=== PATIENT | male | born 1985 | race Caucasian/White ===

== ENCOUNTER 2018-11-13 08:41 | Emergency (ER) | payer SELFPAY ==
[2018-11-13] MEDS ORDERED: LIDOCAINE 1% INJ-PF (10 MG/ML) 30 ML SDV INJ ONE (10:16)
--- NOTE | 2018-11-13 11:03 | RADIOLOGY REPORT (SQ) ---
EXAM DESCRIPTION: HAND RIGHT 3 VIEWS COMPLETED DATE/TIME: 11/13/2018 10:52 am REASON FOR STUDY: PALM LACERATION EVAL FOR FB COMPARISON: None. EXAM PARAMETERS: NUMBER OF VIEWS: Three views. TECHNIQUE: AP, lateral and oblique radiographic images acquired of the right hand. LIMITATIONS: None. FINDINGS: MINERALIZATION: Normal. BONES: No acute fracture or dislocation. No worrisome bone lesions. JOINTS: No effusions. SOFT TISSUES: Laceration overlying 5th metacarpal. No foreign body. OTHER: No other significant finding. IMPRESSION: Soft tissue injury. TECHNICAL DOCUMENTATION: JOB ID: [id number] [employer] All Rights Reserved Reading location - IP/workstation name: [email or web address]
[2018-11-13] MEDS ORDERED: DIPH/PERTUSS(ACELL)/TETANUS VAC/PF 0.5 ML SYR (>=10YO) IM ONE (12:06)
--- NOTE | 2018-11-13 12:06 | ER Document Report ---
ED Wound - General Chief Complaint: Laceration Stated Complaint: ARM/HAND LACERATION Time Seen by Provider: 11/13/18 09:59 TRAVEL OUTSIDE OF THE [place] IN LAST 30 DAYS: No - Related Data Allergies/Adverse Reactions: amoxicillin Allergy (Verified 11/13/18 09:58) Past Medical History - Social History Smoking Status: Never Smoker Chew tobacco use (# tins/day): No Frequency of alcohol use: None Drug Abuse: None Patient has suicidal ideation: No Patient has homicidal ideation: No Renal/ Medical History: Denies: Hx Peritoneal Dialysis Physical Exam - Vital signs Vitals: Temp Pulse Resp BP Pulse Ox 98.4 F 104 H 20 152/77 H 96 11/13/18 09:07 11/13/18 09:07 11/13/18 09:07 11/13/18 09:07 11/13/18 09:07 Course - Vital Signs Vital signs: Temp Pulse Resp BP Pulse Ox 98.4 F 104 H 20 152/77 H 96 11/13/18 09:07 11/13/18 09:07 11/13/18 09:07 11/13/18 09:07 11/13/18 09:07
[2018-11-13] MEDS ORDERED: CLINDAMYCIN HCL 150 MG CAPSULE PO ONE (12:07)
--- NOTE | 2018-11-13 12:11 | ER Document Report ---
ED Wound - General Chief Complaint: Laceration Stated Complaint: ARM/HAND LACERATION Time Seen by Provider: 11/13/18 09:59 Mode of Arrival: Ambulatory Information source: Patient Notes: Patient is an otherwise healthy 33-year-old male who presents to the emergency department with multiple lacerations to his right hand and forearm that occurred just prior to arrival. Patient reports he was walking when he fell and hit his arm onto a piece of metal. He reports tetanus is not up-to-date. Pressure dressing is in place as there is some bleeding from the palm laceration. TRAVEL OUTSIDE OF THE [place] IN LAST 30 DAYS: No - Related Data Allergies/Adverse Reactions: amoxicillin Allergy (Verified 11/13/18 09:58) Past Medical History - Social History Smoking Status: Never Smoker Chew tobacco use (# tins/day): No Frequency of alcohol use: None Drug Abuse: None Family History: Reviewed & Not Pertinent Patient has suicidal ideation: No Patient has homicidal ideation: No - Medical History Medical History: Negative Renal/ Medical History: Denies: Hx Peritoneal Dialysis Surgical Hx: Negative - Immunizations Immunizations up to date: Yes Review of Systems - Review of Systems Constitutional: No symptoms reported EENT: No symptoms reported Cardiovascular: No symptoms reported Respiratory: No symptoms reported Gastrointestinal: No symptoms reported Genitourinary: No symptoms reported Male Genitourinary: No symptoms reported Musculoskeletal: No symptoms reported Skin: See HPI Hematologic/Lymphatic: No symptoms reported Physical Exam - Vital signs Vitals: Temp Pulse Resp BP Pulse Ox 98.4 F 104 H 20 152/77 H 96 11/13/18 09:07 11/13/18 09:07 11/13/18 09:07 11/13/18 09:07 11/13/18 09:07 - Notes Notes: PHYSICAL EXAMINATION: GENERAL: Well-appearing, well-nourished and in no acute distress. HEAD: Atraumatic, normocephalic. EYES: Pupils equal round extraocular movements intact, conjunctiva are normal. ENT: Nares patent NECK: Normal range of motion LUNGS: No respiratory distress Musculoskeletal: Normal range of motion NEUROLOGICAL: Normal speech, normal gait. PSYCH: Normal mood, normal affect. SKIN: Warm, Dry, normal turgor, no rashes or lesions noted. 6 cm irregular laceration to patient's right palm with active bleeding noted.. 22 cm superficial laceration to patient's right forearm. Cap refill less than 3 seconds to all digits, normal motor and sensation distal to area of injury. Course - Re-evaluation Re-evalutation: 11/13/18 12:30 6 cm laceration to patient's right palm was repaired under sterile technique, see procedure note. Laceration to right forearm is not repairable with sutures as it is very superficial. Will Place Xeroform dressing to this area. Patient placed on oral antibiotics, tetanus updated, dressing and wound care instructions given patient verbalizes understanding. - Vital Signs Vital signs: Temp Pulse Resp BP Pulse Ox 98.4 F 104 H 20 152/77 H 96 11/13/18 09:07 11/13/18 09:07 11/13/18 09:07 11/13/18 09:07 11/13/18 09:07 Procedures - Laceration/Wound Repair Right Hand Wound length (cm): 6 Wound's Depth, Shape: Irregular Laceration pre-procedure: Sterile PPE donned Anesthetic type: 1% Lidocaine Volume Anesthetic (mLs): 10 Wound explored: Clean Irrigated w/ Saline (mLs): 1,000 Wound Debrided: Minimal Wound Repaired With: Sutures Suture Size/Type: 4:0, Nylon Number of Sutures: 13 Post-procedure wound care: Sterile dressing applied Post-procedure NV exam normal: Yes Complications: No Discharge - Discharge Clinical Impression: Laceration Condition: Stable Disposition: HOME, SELF-CARE Additional Instructions: Laceration Care Your laceration has been sutured to keep the skin edges aligned during healing. The time of suture removal depends on the nature and location of your cut. Please follow the care instructions the doctor has outlined for you and return for further care, according to the schedule you've been given. Keep the wound and dressing clean. Unless you were told otherwise, you may shower daily, blotting the wound dry with a clean, unused towel. At other times, If the dressing gets wet or blood soaked, remove it and blot the wound dry, then reapply a new dressing. Unless you were instructed otherwise, dressings should be changed at least daily. If any signs of infection occur (swelling, redness, increasing tenderness, red streaks, tender lumps in the armpit or groin above the laceration, or fever), see the doctor immediately. Please return to the emergency department or your primary care provider in 8-10 days for suture removal. Please return earlier if you develop any signs of infection such as increased redness, swelling, foul-smelling drainage or fever. Prescriptions: Clindamycin HCl 300 mg PO TID #30 capsule Forms: Return to Work
[2018-11-13 12:55] VITALS: BP 148/70
== END 2018-11-13 12:55 | disposition home or self-care (01) ==
LOC: ER 08:41
DX: S61.411A Laceration without foreign body of right hand, initial encounter (principal); S51.811A Laceration without foreign body of right forearm, initial encounter; W01.198A Fall on same level from slipping, tripping and stumbling with subsequent striking against other object, initial encounter; Y93.01 Activity, walking, marching and hiking; Z23 Encounter for immunization; Z88.0 Allergy status to penicillin
CPT/HCPCS: 99283; 90471; 73130; 90715; 12002; J3490